=== PATIENT | male | born 1995 | race Caucasian/White ===

== ENCOUNTER → 2018-10-14 17:49 | Outpatient (CLI) | payer BC, SELFPAY ==
[2018-10-14 18:25] LABS: Basophils % 0.3 % (0.1-2.0); Eosinophils # 0.2 K/mm3 (0.0-0.4); Eosinophils % 2.2 % (0.1-12.0); Hematocrit 47.1 % (42.0-52.0); Hemoglobin 15.7 g/dL (14.1-18.0); Lymphocytes # 1.8 K/mm3 (0.7-4.5); Lymphocytes % 24.3 % (10-50); Mean Corpuscular HGB Conc 33.4 g/dL (31.8-35.4); Mean Corpuscular Hemoglobin 30.6 pg (27.0-31.2); Mean Corpuscular Volume 91.6 fl (80-94); Mean Platelet Volume 8.5 fl (7.4-10.4); Monocytes # 0.4 K/mm3 (0.1-1.0); Neutrophils # 4.8 K/mm3 (1.8-7.8); Neutrophils % 67.2 % (37.0-80.0); Platelet Count 261 K/mm3 (142-424); Red Blood Count 5.15 M/mm3 (4.60-6.20); Red Cell Distribution Width 12.8 % (11.5-17.5); White Blood Count 7.2 K/mm3 (4.8-10.8)
[2018-10-14 18:39] LABS: Alanine Aminotransferase 37 U/L (12-78); Albumin Level 4.5 gm/dL (3.4-5.0); Albumin/Globulin Ratio 1.2 (1.1-1.8); Alkaline Phosphatase 80 U/L (46-116); Anion Gap 17.4 mEq/L (5-15); Aspartate Amino Transferase 18 U/L (15-37); Bilirubin,Total 0.5 mg/dL (0.2-1.0); Blood Urea Nitrogen 16 mg/dL (7-18); Calcium 9.4 mg/dL (8.5-10.1); Carbon Dioxide 24 mmol/L (21.0-32.0); Chloride 101 mmol/L (98-107); Chol/HDL Ratio 5.2 (1-3.5); Cholesterol 199 mg/dL (140-200); Creatinine,Serum 1.09 mg/dL (0.70-1.30); Estimated Glomerular Filt Rate 85 ml/min (>60); GFR (African American) 103 ML/MIN (>60); Globulin 3.7 gm/dl (1.3-3.2); Glucose 77 mg/dL (74-106); HDL Cholesterol 38 mg/dL (27-67); LDL Cholesterol 133 mg/dL (0-130); Potassium 4.4 mmoL/L (3.5-5.1); Sodium 138 mmol/L (136-145); T4 (Thyroxine) 10.6 ug/dl (4.7-13.3); Thyroid Stimulating Hormone 2.77 uIU/ml (0.358-3.740); Total Protein,Serum 8.2 gm/dL (6.4-8.2); Triglycerides 142 mg/dL (30-200); VLDL Cholesterol 28 mg/dL (0-40)
[2018-10-14 22:47] LABS: Hemoglobin A1C 5.4 % (0.0-7.0)
[2018-10-16 08:23] LABS: Hep A Ab, IgM Negative (Negative); Hepatitis B Core Antibody IgM Negative (Negative); Hepatitis B Surface Antigen Negative (Negative)
[2018-10-16 18:38] LABS: Hepatitis C Antibody 0.1 s/co ratio (0.0-0.9); Vitamin D 25 Hydroxy 13.8 ng/mL (30.0-100.0)
== END ==
PROVIDERS: Visit Provider Nurse Practitioner Family
DX: I10 Essential (primary) hypertension (principal); E66.9 Obesity, unspecified; R53.83 Other fatigue
CPT/HCPCS: 80053; 80061; 80074; 82652; 83036; 84436; 84443; 85025

== ENCOUNTER → 2020-03-27 17:20 | Outpatient (CLI) | payer BC, SELFPAY ==
[2020-03-27 18:15] LABS: Basophils % 0.5 % (0.1-2.0); Eosinophils # 0.1 K/mm3 (0.0-0.4); Eosinophils % 1.6 % (0.1-12.0); Hematocrit 43.2 % (42.0-52.0); Hemoglobin 14.6 g/dL (14.1-18.0); Lymphocytes # 1.1 K/mm3 (0.7-4.5); Lymphocytes % 18.9 % (10-50); Mean Corpuscular HGB Conc 33.9 g/dL (31.8-35.4); Mean Corpuscular Hemoglobin 31.2 pg (27.0-31.2); Mean Corpuscular Volume 92.2 fl (80-94); Mean Platelet Volume 9.2 fl (7.4-10.4); Monocytes # 0.5 K/mm3 (0.1-1.0); Platelet Count 291 K/mm3 (142-424); Red Blood Count 4.68 M/mm3 (4.60-6.20); Red Cell Distribution Width 12.7 % (11.5-17.5); White Blood Count 5.6 K/mm3 (4.8-10.8)
[2020-03-27 18:49] LABS: Chloride 104 mmol/L (98-107); Potassium 4.2 mmoL/L (3.5-5.1); Sodium 137 mmol/L (136-145)
[2020-03-27 18:51] LABS: Alanine Aminotransferase 35 U/L (12-78); Albumin Level 4.5 g/dl (3.5-5.0); Albumin/Globulin Ratio 1.2 (1.1-1.8); Alkaline Phosphatase 90 U/L (38-126); Aspartate Amino Transferase 35 U/L (17-59); Bilirubin,Total 0.8 mg/dl (0.2-1.3); Blood Urea Nitrogen 10 mg/dl (9-20); Carbon Dioxide 23 mmol/L (22.0-30.0); Estimated Glomerular Filt Rate 93 ml/min (>60); GFR (African American) 112 ML/MIN (>60); Globulin 3.7 g/dL (1.3-3.2); Total Protein,Serum 8.2 g/dl (6.3-8.2)
[2020-03-27 18:52] LABS: Anion Gap 14.2 mEq/L (5-15); Calcium 10.1 mg/dl (8.4-10.2); Chol/HDL Ratio 5.1 (1-3.5); Cholesterol 157 mg/dl (140-200); Glucose 88 mg/dl (74-100); HDL Cholesterol 31 mg/dl (40-60); Triglycerides 149 mg/dl (30-150); VLDL Cholesterol 30 mg/dL (0-40)
[2020-03-27 19:03] LABS: Direct LDL Cholesterol 120.58 mg/dL (100-129)
[2020-03-27 19:09] LABS: T4 (Thyroxine) 11.4 ug/dl (5.53-11.0)
[2020-03-27 19:22] LABS: Thyroid Stimulating Hormone 3.14 uIU/mL (0.465-4.68)
[2020-03-29 10:04] LABS: Vitamin D 25 Hydroxy 8.4 ng/mL (30.0-100.0)
== END ==
PROVIDERS: Visit Provider Nurse Practitioner Family
DX: I10 Essential (primary) hypertension (principal); E55.9 Vitamin D deficiency, unspecified
CPT/HCPCS: 80053; 80061; 82652; 84436; 84443; 85025

== ENCOUNTER → 2020-07-31 12:44 | Outpatient (CLI) | payer BC, SELFPAY ==
[2020-07-31 13:20] LABS: Basophils % 0.4 % (0.1-2.0); Eosinophils # 0.2 K/mm3 (0.0-0.4); Eosinophils % 2.3 % (0.1-12.0); Hematocrit 42.8 % (42.0-52.0); Lymphocytes % 14.6 % (10-50); Mean Corpuscular HGB Conc 32.7 g/dL (31.8-35.4); Mean Corpuscular Hemoglobin 29.8 pg (27.0-31.2); Mean Corpuscular Volume 91.4 fl (80-94); Mean Platelet Volume 7.5 fl (7.4-10.4); Monocytes # 0.5 K/mm3 (0.1-1.0); Monocytes % 7.2 % (1.7-9.3); Neutrophils # 5.2 K/mm3 (1.8-7.8); Neutrophils % 75.5 % (37.0-80.0); Platelet Count 324 K/mm3 (142-424); Red Blood Count 4.68 M/mm3 (4.60-6.20); Red Cell Distribution Width 12.5 % (11.5-17.5); White Blood Count 6.9 K/mm3 (4.8-10.8)
[2020-07-31 14:43] LABS: Hemoglobin A1C 5.4 % (4.0-6.0)
[2020-07-31 14:55] LABS: Alanine Aminotransferase 25 U/L (12-78); Albumin Level 4.4 g/dl (3.5-5.0); Albumin/Globulin Ratio 1.1 (1.1-1.8); Alkaline Phosphatase 80 U/L (38-126); Anion Gap 11.8 mEq/L (5-15); Aspartate Amino Transferase 24 U/L (17-59); Bilirubin,Total 0.6 mg/dl (0.2-1.3); Blood Urea Nitrogen 11 mg/dl (9-20); Carbon Dioxide 29 mmol/L (22.0-30.0); Chloride 101 mmol/L (98-107); Chol/HDL Ratio 5.2 (1-3.5); Cholesterol 176 mg/dl (140-200); Estimated Glomerular Filt Rate 93 ml/min (>60); GFR (African American) 112 ML/MIN (>60); Globulin 3.9 g/dL (1.3-3.2); Glucose 99 mg/dl (74-100); HDL Cholesterol 34 mg/dl (40-60); Potassium 4.8 mmoL/L (3.5-5.1); Sodium 137 mmol/L (136-145); Total Protein,Serum 8.3 g/dl (6.3-8.2); Triglycerides 95 mg/dl (30-150); VLDL Cholesterol 19 mg/dL (0-40)
[2020-07-31 15:07] LABS: Direct LDL Cholesterol 130.91 mg/dL (100-129)
[2020-07-31 15:15] LABS: 25-OH Vitamin D, Total 42.8 ng/mL (30-100)
[2020-07-31 15:27] LABS: Thyroid Stimulating Hormone 2.71 uIU/mL (0.465-4.68)
[2020-07-31 15:46] LABS: Vitamin B12 313 pg/mL (239-931)
== END ==
PROVIDERS: Visit Provider Nurse Practitioner Family
DX: Z00.00 Encounter for general adult medical examination without abnormal findings (principal); R53.83 Other fatigue; Z68.43 Body mass index [BMI] 50.0-59.9, adult
CPT/HCPCS: 36415; 80053; 80061; 82306; 82607; 83036; 84443; 85025

== ENCOUNTER → 2020-08-21 13:19 | Outpatient (CLI) | payer OTHER, SELFPAY | PROVIDERS: PCP Nurse Practitioner Family; Visit Provider Nurse Practitioner Family | DX: G47.00 Insomnia, unspecified (principal); E66.9 Obesity, unspecified; G47.33 Obstructive sleep apnea (adult) (pediatric) ==

== ENCOUNTER → 2020-08-30 11:37 | Outpatient (CLI) | payer BC, SELFPAY ==
--- NOTE | 2020-08-30 12:08 | XR_ITS ---
PROCEDURE: XR CHEST 2V CLINICAL HISTORY: HEMOPTYSIS COMPARISON: CR Shoulder R from 04/25/2019 FINDINGS: Borderline cardiomegaly without failure. There is mediastinal adenopathy in the right paratracheal region with adenopathy of the hilar areas on both sides. There is also vague nodular density noted in the left upper lobe and left lower lobe and possibly right lower lobe versus nipple shadow. No acute bony findings. IMPRESSION: Mediastinal and hilar adenopathy.. Suspect vague left-sided and possibly right-sided pulmonary nodules. Differential diagnosis would include lymphoma, sarcoidosis, or metastatic disease. CT neck, chest, abdomen and pelvis with contrast may provide further evaluation and determine extent of underlying disease. Dictated by: Patel Turcios MD 08/30/2020 13:14 Patel Turcios MD in [facility] 08/30/2020 13:14
[2020-09-03 18:09] LABS: QuantiFERON-TB Gold Plus Negative (Negative)
== END ==
PROVIDERS: Visit Provider Nurse Practitioner Family
DX: R04.2 Hemoptysis (principal); R06.02 Shortness of breath
CPT/HCPCS: 36415; 71046; 86480

== ENCOUNTER → 2020-08-31 11:01 | Outpatient (CLI) | payer BC, SELFPAY ==
--- NOTE | 2020-08-31 | CT_ITS ---
PROCEDURE: CT ABDOMEN PELVIS W CON CLINICAL INDICATION: HEMOPTYSIS, LUNG NODULE, LAD Adenopathy COMPARISON: No exams were available for comparison TECHNIQUE: IV Contrast: 75ML OPTIRAY 350 Oral Contrast None Axial images obtained with sagittal and coronal reformats. All CT scans at the facility use one or more dose reduction, viz: automated exposure control, ma/kV adjustment per patient size (including targeted exams where dose is matched to indication, i.e. head), or iterative reconstruction technique. FINDINGS: The liver, adrenal glands, pancreas, and kidneys have an unremarkable appearance. There is mild splenomegaly at 15 cm. No intestinal obstruction or free air. Unremarkable appendix. No pelvic mass or abnormal fluid collection. No intra-abdominal or retroperitoneal adenopathy. No acute bony findings. No abnormal fluid collections. There is mild thickening of the pericardium suggesting small pericardial effusion. IMPRESSION: Mild thickening of the pericardium suggesting small pericardial effusion. Splenomegaly otherwise negative CT of the abdomen and pelvis. No adenopathy apparent Dictated by: Patel Turcios MD 08/31/2020 12:53 Patel Turcios MD in [facility] 08/31/2020 12:53
--- NOTE | 2020-08-31 | CT_ITS ---
PROCEDURE: CT CHEST W CON CLINCAL INDICATION: HEMOPTYSIS, LUNG NODULE, LAD COMPARISON: CT CT ABDOMEN PELVIS W CON from 08/31/2020 TECHNIQUE: IV Contrast: 75ml Optiray 350 Axial images obtained with sagittal and coronal reformats. All CT scans at the facility use one or more dose reduction, viz: automated exposure control, ma/kV adjustment per patient size (including targeted exams where dose is matched to indication, i.e. head), or iterative reconstruction technique. FINDINGS: Thyroid gland is mildly prominent but no obvious nodules are evident. There is fairly extensive mediastinal and bilateral hilar adenopathy. Right paratracheal victoriano area measures 5.2 x 3.9 cm. Subcarinal adenopathy measures 5.2 by 3.9 cm. There are mildly enlarged hilar lymph nodes on both sides measuring up to 2.8 cm on the right and 2.4 cm on the left. There is bilateral gynecomastia. No enlarged axillary nodes are apparent. In some of the areas of adenopathy there is some slight irregular increased density suggesting some early calcification. There are bilateral noncalcified pulmonary nodules. These nodules are in both upper and lower lobes and mainly peripheral measuring to 2 cm in the lower lobe on the right posteriorly and 1.8 cm in the left lower lobe. In the left upper lobe there are numerous small pulmonary nodules in the segmental area. There is a cavitating nodule in the left upper lobe measuring 10 mm. No interstitial lung disease is apparent. No effusions are evident. Some of the nodules are consolidating in the right lower lobe. There is a small cavitating nodule also in the right lower lobe at 10 mm. No pleural effusions. No acute bony findings. IMPRESSION: Mediastinal and bilateral hilar adenopathy as described above. There is some scattered irregular areas of slight increased density of the nodes suggesting some early/mild calcification along with numerous bilateral pulmonary nodules some of which are showing some central cavitation. These findings may be seen with sarcoidosis. Differential diagnosis would include lymphoma and metastatic disease. Dictated by: Patel Turcios MD 08/31/2020 12:49 Patel Turcios MD in [facility] 08/31/2020 12:50
--- NOTE | 2020-08-31 | CT_ITS ---
PROCEDURE: CT SOFT TISSUE NECK W CON CLINICAL HISTORY: HEMOPTYSIS, LUNG NODULE, LAD Mediastinal adenopathy COMPARISON: No exams were available for comparison TECHNIQUE: Oral Contrast: None IV Contrast: 75 mL Optiray 350 Axial images obtained with sagittal and coronal reformats. All CT scans at the facility use one or more dose reduction, viz: automated exposure control, ma/kV adjustment per patient size (including targeted exams where dose is matched to indication, i.e. head), or iterative reconstruction technique. FINDINGS: There is mild fullness of the nasopharyngeal mucosa on both sides slightly greater on the right. This is nonspecific. Mild prominence of the tonsils also noted. The epiglottis and glottic region have an unremarkable appearance. There are scattered small nodes in the neck. The largest node is in the left jugular chain measuring approximately 2.9 x 1.1 cm, level 2. The thyroid gland is unremarkable. No abnormal fluid collections are evident. IMPRESSION: 1. No dominant adenopathy. There is only 1 mildly prominent cervical lymph node on the left. 2. Mild thickening of the nasopharyngeal mucosa and mild prominence of the tonsils nonspecific. Dictated by: Patel Turcios MD 08/31/2020 12:33 Patel Turcios MD in [facility] 08/31/2020 12:33
== END ==
PROVIDERS: PCP Nurse Practitioner Family; Visit Provider Nurse Practitioner Family
DX: R04.2 Hemoptysis (principal); R05 Cough; R91.8 Other nonspecific abnormal finding of lung field; R59.0 Localized enlarged lymph nodes
CPT/HCPCS: 70491; 71260; 74177; Q9967

== ENCOUNTER → 2020-09-04 13:49 | Outpatient (CLI) | payer BC, SELFPAY ==
[2020-09-04 14:40] LABS: Basophils % 0.4 % (0.1-2.0); Eosinophils # 0.2 K/mm3 (0.0-0.4); Eosinophils % 2.9 % (0.1-12.0); Hematocrit 43.1 % (42.0-52.0); Hemoglobin 14.1 g/dL (14.1-18.0); Lymphocytes # 1.2 K/mm3 (0.7-4.5); Lymphocytes % 15.2 % (10-50); Mean Corpuscular HGB Conc 32.7 g/dL (31.8-35.4); Mean Corpuscular Hemoglobin 29.3 pg (27.0-31.2); Mean Corpuscular Volume 89.6 fl (80-94); Mean Platelet Volume 7.9 fl (7.4-10.4); Monocytes # 0.5 K/mm3 (0.1-1.0); Monocytes % 6.9 % (1.7-9.3); Neutrophils # 5.7 K/mm3 (1.8-7.8); Neutrophils % 74.6 % (37.0-80.0); Platelet Count 337 K/mm3 (142-424); Red Blood Count 4.81 M/mm3 (4.60-6.20); Red Cell Distribution Width 13.4 % (11.5-17.5); White Blood Count 7.7 K/mm3 (4.8-10.8)
[2020-09-04 15:08] LABS: Chloride 102 mmol/L (98-107); Potassium 4.2 mmoL/L (3.5-5.1); Sodium 138 mmol/L (136-145)
[2020-09-04 15:11] LABS: Anion Gap 15.2 mEq/L (5-15); Blood Urea Nitrogen 15 mg/dl (9-20); Calcium 9.5 mg/dl (8.4-10.2); Carbon Dioxide 25 mmol/L (22.0-30.0); Estimated Glomerular Filt Rate 105 ml/min (>60); GFR (African American) 127 ML/MIN (>60); Glucose 98 mg/dl (74-100)
[2020-09-04 15:16] LABS: C-Reactive Protein 20.7 mg/L (0-4)
[2020-09-04 15:26] LABS: Erythrocyte Sedimentation Rate 19 mm/hr (0-15)
[2020-09-06 13:52] LABS: Peripheral Smear Review Scanned Result
[2020-09-07 10:21] LABS: Angiotensin Converting Enzyme 25 U/L (14-82)
== END ==
PROVIDERS: Visit Provider Nurse Practitioner Family
DX: R04.2 Hemoptysis (principal); R05 Cough; R91.8 Other nonspecific abnormal finding of lung field; R59.0 Localized enlarged lymph nodes
CPT/HCPCS: 36415; 80048; 82164; 85025; 85651; 86140; 87385

== ENCOUNTER → 2020-09-10 15:29 | Outpatient (CLI) | payer BC, SELFPAY ==
[2020-09-10 16:26] LABS: INR 1.03 (0.9-1.1); Prothrombin Time 11.4 seconds (9.4-11.8)
[2020-09-13 16:30] LABS: Histoplasma Gal'mannan Ag Ur <0.5 (<0.5 ng/mL)
[2020-09-13 19:59] LABS: Fungitell(Beta D-Glucan) Serum <31 pg/mL (<80)
[2020-09-14 23:05] LABS: Aspergillus flavus Negative (Neg:<1:1); Aspergillus fumigatus Negative (Neg:<1:1); Aspergillus niger Negative (Neg:<1:1)
[2020-09-15 08:52] LABS: Blastomyces Antibody Negative (Neg:<1:1)
[2020-09-21 17:48] LABS: Aspergillus Antigen, BAL/Serum 0.07 Index (0.00-0.49)
== END ==
PROVIDERS: Visit Provider Internal Medicine Pulmonary Disease
DX: R04.2 Hemoptysis (principal)
CPT/HCPCS: 36415; 85610; 86606; 86612; 86698; 87305; 87385; 87449

== ENCOUNTER → 2020-09-13 13:46 | Outpatient (CLI) | payer BC, SELFPAY ==
--- NOTE | 2020-09-13 13:47 | CA_ITS ---
APPROVED REPORT EXAM: Comprehensive 2D, Doppler, and color-flow Echocardiogram Certified Professional Controller: Michelle Kearney RDCS Ht: 6 ft 0 in Wt: 378lbs BSA: 2.79 BP: 138/92 mmHg Indications: CAVITARY LUNG LESIONS,MORBID OBESITY,RODRIGUEZ 2D Dimensions LVOT 2.45 cm (M/F) 1.5-2.5 M-Mode Dimensions RVDd 2.84 cm (0.9-2.6) LA Diam 3.71 cm (1.9-4.0) LVDd 3.89 cm (3.5-5.7) Ao Diam 3.58 cm (2.0-3.7) LVDs 2.22 cm (3.5-5.7) IVSd 1.34 cm (0.6-1.1) PWd 0.92 cm (0.6-1.1) EF (Teich) 74.70% FS 42.90% EDV (Teich) 65.50 mL ESV (Teich) 16.60 mL LV Diastology E Decel Time 140.00 (160-240 msec) E/A Ratio 0.6 MED E' 8.90 (< 7 cm/sec) E'/MED E' Ratio 4.56 (>14) LAT E' 8.70 (<10 cm/sec) E/LAT E' Ratio 4.67 (>14) Mitral Valve MV E Max Alcon. 41.00 (40-130 cm/s) MV A Velocity 67.00 (40-130 cm/s) E/A Ratio 0.60 MV Decel. Time 140.00 (160-240 ms) MV PHT 41.00 ms Left Ventricle Left atrium is normal size, left ventricle is normal size, there is no concentric left ventricular hypertrophy, visually estimated ejection fraction 55% with no regional wall motion abnormality. Right Ventricle Right atrium and right ventricle are normal size and contractility. Aortic Valve Aortic valve is normal. Mitral Valve Mitral valve is normal. Tricuspid Valve Tricuspid valve is grossly normal. Pulmonic Valve Pulmonic valve is poorly visualized. Great Vessels Aortic root is normal. Pericardium Trivial pericardial effusion noted Conclusion 1. Normal left ventricular size, preserved left ventricular systolic function, visually estimated ejection fraction 55% with no regional wall motion abnormality, diastolic parameters are inconclusive. 2. Trivial pericardial effusion noted. Electronically signed by : Mack Alvarez, 09/13/2020 14:44:06
== END ==
PROVIDERS: PCP Nurse Practitioner Family; Visit Provider Internal Medicine Pulmonary Disease
DX: J98.4 Other disorders of lung (principal); R06.09 Other forms of dyspnea; R04.2 Hemoptysis; R59.0 Localized enlarged lymph nodes; R91.8 Other nonspecific abnormal finding of lung field
CPT/HCPCS: 93306

== ENCOUNTER → 2020-09-18 12:46 | Outpatient (CLI) | payer BC, SELFPAY ==
[2020-09-18 15:27] LABS: Coronavirus 19 IgG Antibody Negative (Negative); Coronavirus 19 IgM Antibody Negative (Negative)
[2020-09-20 13:50] LABS: HIV Screen 4th Generation wRfx Non Reactive (Non Reactive)
[2020-09-21 17:47] LABS: Aspergillus Antigen, BAL/Serum 0.03 Index (0.00-0.49)
== END ==
PROVIDERS: Visit Provider Internal Medicine Pulmonary Disease
DX: R59.0 Localized enlarged lymph nodes (principal); J98.4 Other disorders of lung; R04.2 Hemoptysis
CPT/HCPCS: 36415; 86328; 86703; 87040; 87305; G0432

== ENCOUNTER 2020-09-19 11:07 | Day surgery (SDC) | payer BC, SELFPAY ==
[2020-09-17 11:53] VITALS: BMI 51.5
[2020-09-19] VITALS (10 sets, daily range): BP systolic 114–157; BP diastolic 54–89; PULSE 78–106; RESP 16–28; TEMP 36.1–36.9; O2SAT 94–98
--- NOTE | 2020-09-19 15:20 | HMH.ANESCL ---
[facility] Anesthesia Checklist - Patient Identification Patient Identification: Arm Band, Verbal (Name & ) - Structural Data Admitted From: Home Planned Operative Procedure/s: bronch Consent for Planned Operative Procedure(s) Verified: Yes Verified Documents: History and Physical - NPO Status Verified Time NPO: 00:00 - Additional verifications Patient : No Anesthesia Reactions: No Hx Blood Transfusions: No Blood Transfusion Reaction: No Cephalosporin Allergy: No Previous Colonoscopy: No - Cardiovascular Assessment Heart Sounds: S1 & S2 Pulse Strength: Baseline Pulse Rhythm: Regular Peripheral Edema: No - Airway Assessment C-Spine Mobility Assessed: Yes TMJ Mobility Assessed: Yes Dentition: Good Dentition - Neurological Assessment Level of Consciousness: Awake, Alert, Appropriate Hx Seizures: No Numbness or tingling in extremities: No - Anesthesia Plan Anesthesia Risk discussed: Yes Anesthesia Plan: Verified ASA Class: III Anesthesia Type: General [facility] History I have reviewed the patient's past medical history: Yes Medical History: Reports:: Hypertension, Migraine Denies:: Cancer, Diabetes Mellitus Type 1, Diabetes Mellitus Type 2, MRSA, Seizures *Have you ever received a pneumonia vaccine?: No *Have you received a flu vaccine this season?: No Other Medical History: Denies: Blood Transfusion Reaction, Hypothyroidism Anesthesia experience/problems:: none Other Surgeries: Yes: No Previous Surgery Amputation: No Fractures: No - *Social History Last grade of school completed: High school graduate Smoking Status: Never smoker Alcohol Intake: never Substance Use Type: denies use *Occupational Status:: unemployed Housing: house Household Members: family *Travel in the last 8 weeks: None Family Hx:: Hypertension, Diabetes
--- NOTE | 2020-09-19 15:22 | HMH.ANESI ---
[facility] Anesthesia Record Part I Intake, IV Amount: 800 Estimated blood loss (mL): 5 Urine output (mL): 0 Blood Products used (#): none Blood Pressure: 114/54 SaO2: 97 Pulse Rate: 91 Respiratory Rate: 20 Temperature: 97.5 F Patient is:: Awake, Stable Stable to PACU at:: 15:18
--- NOTE | 2020-09-19 15:31 | XR_ITS ---
PROCEDURE: XR CHEST AP CLINICAL HISTORY: BRONCHOSCOPY COMPARISON: DX XR CHEST 2V from 08/30/[address] CHEST W CON from 08/31/2020 FINDINGS: 2 images are submitted with the C-arm showing the bronchus scope in the right mid thoracic region with variant areas of extension the biopsy catheter. Fluoroscopy time: 120 seconds. IMPRESSION: Status post bronchoscopy with C-arm guidance Dictated by: Patel Turcios MD 11/22/2020 15:55 Patel Turcios MD in [facility] 11/22/2020 15:55
--- NOTE | 2020-09-19 15:51 | HMH.BRONCH ---
- Procedure: Date: 09/19/20 Patient Date of :: 1995 Procedure Performed:: Endobronchial ultrasound with fine-needle aspiration bronchoscopy with bronchoalveolar lavage, transbronchial and endobronchial biopsies Indications:: Mediastinal and hilar lymphadenopathy and pulmonary nodules Performing Provider:: Kelli Garzon MD Referring Provider:: Dr. jimenez Sedation:: General anesthesia Procedure:: Endobronchial ultrasound with fine-needle aspiration: Clean EBUS bronchoscopy was introduced 8 and half ET tube and lymph node surveillance were performed, patient was found to have station 7 and 4R lymphadenopathy. 5 passes were performed and station 7 enlarged lymphadenopathy with adequate tissue obtained, she was placed in CytoLyt cytopathology examination. 5 passes were performed the station 4R lymphadenopathy and was sent in the CytoLyt. Tissue samples were also sent for soy broth culture and also for flow cytometry as there is concern for lymphoma. Bronchoscopy with BAL,transbronchial biopsies & endobronchial biopsy: Clean diagnostic bronchoscopy was introduced through ET tube and airways were examined up to subsegmental bronchi. Right upper lobe bronchi along with subsegmental bronchi appeared narrowed with lumen decreased by around 50%. An endobronchial lesion was also found on the right middle lobe MADY extending into the right middle lobe lateral segment. Rest of the airways appeared normal. Endobronchial biopsies were performed for the right middle lobe BI endobronchial lesion and was sent for cytopathology Bronchioloalveolar was performed in the right upper lobe anterior segment. BAL fluid were sent for differential, bacterial fungal and AFB culture along with cytopathology. Transbronchial biopsies were performed in the right upper lobe anterior segment. A total of 7 biopsies were obtained, 5 biopsies were sent in formalin for cytopathology, 2 biopsy samples 1 in each normal saline specimen cups were sent for fungal and AFB cultures. Findings:: See the procedure note Recommendations:: Follow in the clinic as previously scheduled Complications:: None Estimated blood obtained (mL): 10
--- NOTE | 2020-09-19 15:59 | XR_ITS ---
PROCEDURE: XR CHEST PORTABLE CLINICAL HISTORY: post procedure, cough COMPARISON: DX XR CHEST 2V from 08/30/[address] CHEST W CON from 08/31/2020 CR XR CHEST AP from 09/19/2020 FINDINGS: Mild cardiomegaly. There is increased density in the right upper lobe consistent with pneumonia. Mediastinal adenopathy is noted. No evidence of pneumothorax or pleural effusion. No acute bony findings. IMPRESSION: Right upper lobe pneumonia with mediastinal adenopathy Dictated by: Patel Turcios MD 09/19/2020 16:08 Patel Turcios MD in [facility] 09/19/2020 16:08
--- NOTE | 2020-09-21 14:39 | HMH.ANESII ---
[facility] Anesthesia Record Part II Discharge Time: 15:48 Destination: Surgical Day Care (OP Surgery) PACU nurse assessment reviewed?: Yes Patient Condition:: Good Anesthesia Complications:: None Swallowing reflex intact?: Yes Cyanosis?: No Blood Pressure: 121/86 Pulse Rate: 100 Temperature: 96.9 F Mental Status: Alert & Oriented Pain level:: 0 Nausea and/or vomitting:: None Intake, IV Amount: 50
[2020-09-21 14:40] VITALS: BP 121/86; PULSE 100; TEMP 36.1
== END 2020-09-19 16:30 | disposition home or self-care (01) ==
LOC: OR 11:08
PROVIDERS: PCP Nurse Practitioner Family; Visit Provider Internal Medicine Pulmonary Disease
PROC: (CPT 31624; principal; 2020-09-19 13:00)
DX: R04.2 Hemoptysis (principal); R59.0 Localized enlarged lymph nodes; R91.8 Other nonspecific abnormal finding of lung field; J98.4 Other disorders of lung; I10 Essential (primary) hypertension; E03.9 Hypothyroidism, unspecified; B95.4 Other streptococcus as the cause of diseases classified elsewhere; B96.89 Other specified bacterial agents as the cause of diseases classified elsewhere
CPT/HCPCS: 31624; 31654; 31625; 31629; 31633; 71045; 76000; 87070; 87102; 87116; 87186; 87205; 87206; 89051; J2405

== ENCOUNTER → 2021-08-29 10:21 | Outpatient (CLI) | payer BC, SELFPAY ==
[2021-08-29 11:09] LABS: Basophils % 0.6 % (0.1-2.0); Eosinophils # 0.2 K/mm3 (0.0-0.4); Eosinophils % 2.2 % (0.1-12.0); Hematocrit 45.3 % (42.0-52.0); Hemoglobin 14.8 g/dL (14.1-18.0); Lymphocytes # 1.2 K/mm3 (0.7-4.5); Lymphocytes % 17.4 % (10-50); Mean Corpuscular HGB Conc 32.8 g/dL (31.8-35.4); Mean Corpuscular Hemoglobin 30.4 pg (27.0-31.2); Mean Corpuscular Volume 92.7 fl (80-94); Mean Platelet Volume 8.2 fl (7.4-10.4); Monocytes # 0.4 K/mm3 (0.1-1.0); Monocytes % 5.7 % (1.7-9.3); Neutrophils % 74.1 % (37.0-80.0); Platelet Count 383 K/mm3 (142-424); Red Blood Count 4.89 M/mm3 (4.60-6.20); Red Cell Distribution Width 12.9 % (11.5-17.5); White Blood Count 6.7 K/mm3 (4.8-10.8)
[2021-08-29 11:39] LABS: Alanine Aminotransferase 34 U/L (12-78); Albumin Level 4.4 g/dl (3.5-5.0); Albumin/Globulin Ratio 1.2 (1.1-1.8); Alkaline Phosphatase 77 U/L (38-126); Anion Gap 15.9 mEq/L (5-15); Aspartate Amino Transferase 33 U/L (17-59); Bilirubin,Total 0.5 mg/dl (0.2-1.3); Blood Urea Nitrogen 12 mg/dl (9-20); Carbon Dioxide 26 mmol/L (22.0-30.0); Chloride 103 mmol/L (98-107); Chol/HDL Ratio 5.8 (1-3.5); Cholesterol 185 mg/dl (140-200); Estimated Glomerular Filt Rate 104 ml/min (>60); GFR (African American) 125 ML/MIN (>60); Globulin 3.8 g/dL (1.3-3.2); Glucose 95 mg/dl (74-100); HDL Cholesterol 32 mg/dl (40-60); Potassium 4.9 mmoL/L (3.5-5.1); Sodium 140 mmol/L (136-145); Total Protein,Serum 8.2 g/dl (6.3-8.2); Triglycerides 124 mg/dl (30-150); VLDL Cholesterol 25 mg/dL (0-40)
[2021-08-29 11:49] LABS: Direct LDL Cholesterol 122.38 mg/dL (100-129)
[2021-08-29 11:57] LABS: 25-OH Vitamin D, Total 29.8 ng/mL (30-100)
[2021-08-29 12:10] LABS: Thyroid Stimulating Hormone 2.75 uIU/mL (0.465-4.68)
[2021-08-29 12:28] LABS: Vitamin B12 318 pg/mL (239-931)
== END ==
PROVIDERS: PCP Nurse Practitioner Family; Visit Provider Nurse Practitioner Family
DX: Z00.00 Encounter for general adult medical examination without abnormal findings (principal); R53.83 Other fatigue; E55.9 Vitamin D deficiency, unspecified
CPT/HCPCS: 36415; 80053; 80061; 82306; 82607; 84443; 85025

== ENCOUNTER → 2021-09-11 13:23 | Outpatient (CLI) | payer BC, SELFPAY | PROVIDERS: PCP Nurse Practitioner Family; Visit Provider Nurse Practitioner Family | DX: G47.30 Sleep apnea, unspecified (principal); R06.83 Snoring; G47.00 Insomnia, unspecified | CPT/HCPCS: 95806 ==

== ENCOUNTER → 2021-09-16 11:49 | Outpatient (CLI) | payer BC, SELFPAY ==
--- NOTE | 2021-09-16 11:56 | XR_ITS ---
PROCEDURE: XR CHEST PORTABLE CLINICAL HISTORY: COVID OUTPATIENT COMPARISON: DX XR CHEST 2V from 08/30/[address] CHEST W CON from 08/31/2020 CR XR CHEST AP from 09/19/2020 CR XR CHEST PORTABLE from 09/19/2020 FINDINGS: There is cardiomegaly without failure. The lungs are clear without infiltrates, suspicious nodules, or pleural effusions. No acute bony abnormalities. IMPRESSION: Cardiomegaly otherwise negative Dictated by: Patel Turcios MD 09/16/2021 12:35 Patel Turcios MD in [facility] 09/16/2021 12:35
[2021-09-16 20:31] LABS: Coronavirus 19, PCR Not Detected (NotDetected); Influenza A, PCR Not Detected (NotDetected); Influenza B, PCR Not Detected (NotDetected)
== END ==
PROVIDERS: PCP Nurse Practitioner Family; Visit Provider Nurse Practitioner Family
DX: Z20.822 Contact with and (suspected) exposure to COVID-19 (principal); R50.9 Fever, unspecified; R04.2 Hemoptysis
CPT/HCPCS: 71045; C9803; U0003; U0005